=== PATIENT | female | born 1970 | race Caucasian/White ===

== ENCOUNTER 2017-06-30 11:53 | Day surgery (SDC) | payer OTHER ==
[~2017-06-30] VITALS: Ht 160 cm; Wt 52.6 kg
[2017-06-30 12:23] VITALS: BP 111/76
[2017-06-30] MEDS ORDERED: ERGO500017 PO (12:30)
[2017-06-30] MEDS ORDERED: MAGN250T8 PO (12:30)
[2017-06-30] MEDS ORDERED: FLUO40CA2 PO (12:30)
[2017-06-30] MEDS ORDERED: VITAMIN B 12 INJ (12:30)
[2017-06-30 16:04] LABS: GLUCOSE, CSF 53 mg/dL (40-80)
[2017-07-03 19:06] LABS: HERPES SIMPLEX VIRUS-1 DNA PCR Negative (Negative); HERPES SIMPLEX VIRUS-2 DNA PCR Negative (Negative)
== END 2017-06-30 17:35 | disposition home or self-care (01) ==
LOC: OUT 11:53
PROVIDERS: ATTEND Specialist
DX: R20.8 Other disturbances of skin sensation (principal)
CPT/HCPCS: 36415; 62270; 82040; 82042; 82164; 82784; 82945; 83519; 83520; 83873; 84157; 86256; 86316; 86592; 86645; 86695; 86696; 86762; 86777; 86778; 87070; 87205; 87476; 87496; 87529; 87798; 88108; 89051

== ENCOUNTER → 2020-05-08 | Outpatient (CLI) | payer OTHER ==
[~2020-05-08] MED LIST: ERGO500017 PO; FLUO40CA2 PO; MAGN250T8 PO; REGADENOSON 0.4 MG/5 ML SYRINGE ONE; VITAMIN B 12 INJ
== END | disposition home or self-care (01) ==
LOC: CFH 12:30
PROVIDERS: ATTEND Internal Medicine Cardiovascular Disease
DX: R94.31 Abnormal electrocardiogram [ECG] [EKG] (principal); R06.02 Shortness of breath; R07.89 Other chest pain
CPT/HCPCS: 78452; 93017; A9502; J2785

== ENCOUNTER 2020-05-15 07:37 | Outpatient (CLI) | payer OTHER ==
[~2020-05-15 07:37] MED LIST changes: -REGADENOSON 0.4 MG/5 ML SYRINGE ONE
== END 2020-05-15 23:59 | disposition home or self-care (01) ==
LOC: CVU 07:37
PROVIDERS: ATTEND Internal Medicine Cardiovascular Disease
DX: I35.8 Other nonrheumatic aortic valve disorders (principal); R06.02 Shortness of breath; R07.89 Other chest pain; R94.31 Abnormal electrocardiogram [ECG] [EKG]
CPT/HCPCS: 93306